=== PATIENT | female | born 1970 | race Caucasian/White ===

== ENCOUNTER 2018-06-16 16:28 | Emergency (ER) | payer BC, MEDICAID ==
[~2018-06-16] VITALS: Ht 162.6 cm; Wt 61.4 kg
[~2018-06-16 16:28] MED LIST: THYROID
[2018-06-16 16:36] VITALS: BP 114/77
[2018-06-16] MEDS ORDERED: CEPH-572 PO (17:10)
[2018-06-16] MEDS ORDERED: SULF1TAB49 PO (17:10)
[2018-06-16] MEDS ORDERED: mupirocin 2% ointment 22GM TP STA (17:11)
[2018-06-16] MEDS ORDERED: TETanus/Pertussis (Acell)/Diphther VAC/PF (Tdap-Adult) 0.5ml syringe IM ONE (17:15)
== END 2018-06-16 18:36 | disposition home or self-care (01) ==
LOC: ER 16:29
DX: S00.83XA Contusion of other part of head, initial encounter (principal); S00.212A Abrasion of left eyelid and periocular area, initial encounter; S00.511A Abrasion of lip, initial encounter; S00.81XA Abrasion of other part of head, initial encounter; S40.212A Abrasion of left shoulder, initial encounter; S80.212A Abrasion, left knee, initial encounter; S80.211A Abrasion, right knee, initial encounter; W17.89XA Other fall from one level to another, initial encounter; Y93.39 Activity, other involving climbing, rappelling and jumping off; Y92.003 Bedroom of unspecified non-institutional (private) residence as the place of occurrence of the external cause; Y99.8 Other external cause status
CPT/HCPCS: 70486; 90471; 90715; 99284